=== PATIENT | female | born 1995 | race Caucasian/White ===

== ENCOUNTER 2021-11-23 14:51 | Inpatient (IN) | payer BC ==
[~2021-11-23] VITALS: Ht 162.6 cm; Wt 96.6 kg
[2021-11-23 14:52] VITALS: BP 101/77
[2021-11-23 15:17] LABS: HEMOGLOBIN 13.8 gm/dL (12.0-15.0); MCH 26.8 pg (26.0-34.0); MCHC 32.1 g/dL (28.0-37.0); MCV 83.3 fL (80.0-100.0); PLATELET COUNT 122 thou/uL (150-400); RBC 5.17 mil/uL (4.20-5.00); RDW 13.7 % (10.5-14.5); WBC 2.7 thou/uL (4.0-11.0)
[2021-11-23 15:51] LABS: ANION GAP 12 mmol/L (7-16); BUN 11 mg/dL (7-18); CALCIUM 8.5 mg/dL (8.5-10.1); CHLORIDE 103 mmol/L (98-107); CO2 25 mmol/L (21-32); CREATININE 0.8 mg/dL (0.6-1.0); GLUCOSE 114 mg/dL (74-106); POTASSIUM 3.9 mmol/L (3.5-5.1); SODIUM 140 mmol/L (136-145)
[2021-11-23 15:59] LABS: ABSOLUTE NEUTROPHILS 2.3 thou/uL (1.4-8.2)
[2021-11-23 16:01] LABS: ALBUMIN 3.4 g/dL (3.4-5.0); MAGNESIUM 1.8 mg/dL (1.8-2.4); SGOT 29 U/L (15-37); SGPT 27 U/L (14-59); TOTAL BILIRUBIN 0.3 mg/dL (0.2-1.0); TOTAL PROTEIN 7.2 g/dL (6.4-8.2)
[2021-11-23 20:00] VITALS: BP 112/80
[2021-11-24] VITALS: BP 110/72
[2021-11-24 04:00] VITALS: BP 112/67
[2021-11-24 06:48] LABS: HEMATOCRIT 38.6 % (37.0-47.0); HEMOGLOBIN 12.5 gm/dL (12.0-15.0); MCHC 32.4 g/dL (28.0-37.0); MCV 83.3 fL (80.0-100.0); RBC 4.63 mil/uL (4.20-5.00); RDW 13.8 % (10.5-14.5); WBC 3.3 thou/uL (4.0-11.0)
[2021-11-24 07:12] LABS: ALBUMIN 2.9 g/dL (3.4-5.0); ANION GAP 14 mmol/L (7-16); BUN 11 mg/dL (7-18); CALCIUM 7.5 mg/dL (8.5-10.1); CHLORIDE 103 mmol/L (98-107); CO2 21 mmol/L (21-32); CREATININE 0.7 mg/dL (0.6-1.0); DIRECT BILIRUBIN < 0.1 mg/dL (<0.1-0.2); GLUCOSE 83 mg/dL (74-106); MAGNESIUM 1.2 mg/dL (1.8-2.4); PHOSPHORUS 3.3 mg/dL (2.6-4.7); POTASSIUM 3.4 mmol/L (3.5-5.1); SGOT 26 U/L (15-37); SGPT 23 U/L (14-59); SODIUM 138 mmol/L (136-145); TOTAL BILIRUBIN 0.2 mg/dL (0.2-1.0); TOTAL PROTEIN 6.3 g/dL (6.4-8.2)
[2021-11-24 07:40] VITALS: BP 109/55
--- NOTE | 2021-11-24 08:21 | NUR ---
UNABLE TO PULL PATIENT MEDICATIONS AT THIS TIME. PHARMACY AWARE
[2021-11-24 11:32] VITALS: BP 111/59
--- NOTE | 2021-11-24 11:56 | NUR ---
PT TITRATED UP TO 6 LITERS NASAL CANNULA NOW AT THIS TIME. PT STARTED THE MORNING ON 2 LITERS
[2021-11-24 12:47] LABS: BE(vivo) 1.1 mmol/L (-2 to +3); HCO3 24.3 mmol/L (22.0-26.0); PCO2 34.6 mmHg (35.0-45.0); pH 7.465 (7.360-7.450); sO2 90.8 % (92.0-98.0)
[2021-11-24 12:48] LABS: PO2 55.5 mmHg (80.0-100.0)
--- NOTE | 2021-11-24 13:28 | NUR ---
CONTACT DR. HAY AND NIKITA ABOUT ABG AND ELECTROLYTES. INFORM PATIENT ON NEED FOR LOVENOX AND ACCU CHECK. PT AGREES TO ALLOW MEDICATION AND BLOOD GLUCOSE CHECKS. PLACE REGULAR DIET. WILL CONTINUE TO ASSESS.
[2021-11-24 20:00] VITALS: BP 106/65
[2021-11-24 23:44] VITALS: BP 100/70
[2021-11-25 03:59] VITALS: BP 115/81; BP 115/87
[2021-11-25 06:36] LABS: HEMATOCRIT 40.5 % (37.0-47.0); HEMOGLOBIN 13.1 gm/dL (12.0-15.0); MCH 27.1 pg (26.0-34.0); MCHC 32.3 g/dL (28.0-37.0); MCV 83.8 fL (80.0-100.0); RBC 4.84 mil/uL (4.20-5.00); RDW 14.2 % (10.5-14.5); WBC 2.7 thou/uL (4.0-11.0)
[2021-11-25 07:01] LABS: ALBUMIN 2.9 g/dL (3.4-5.0); ANION GAP 13 mmol/L (7-16); BUN 12 mg/dL (7-18); CALCIUM 8.3 mg/dL (8.5-10.1); CHLORIDE 105 mmol/L (98-107); CO2 24 mmol/L (21-32); CREATININE 0.5 mg/dL (0.6-1.0); DIRECT BILIRUBIN < 0.1 mg/dL (<0.1-0.2); GLUCOSE 77 mg/dL (74-106); MAGNESIUM 1.8 mg/dL (1.8-2.4); PHOSPHORUS 4.2 mg/dL (2.5-4.9); POTASSIUM 3.8 mmol/L (3.5-5.1); SGOT 27 U/L (15-37); SGPT 25 U/L (30-65); SODIUM 142 mmol/L (136-145); TOTAL BILIRUBIN 0.2 mg/dL (0.2-1.0); TOTAL PROTEIN 6.6 g/dL (6.4-8.2)
[2021-11-25 08:00] VITALS: BP 115/81
--- NOTE | 2021-11-25 08:14 | HC ---
[facility] [place] [address] CONSULTATION Name: KYLIE SELLERS Room #: 140-2 ADM IN M.R.#: [id number] Admission: 11/23/21 Attend Phys: Kyle Mays MD Discharge: Date of : 89 Report #: [id number] THIS REPORT FOR: cc: FAM - Family physician unknown FAM - Family physician unknown Sujit Clark MD ~ DATE OF SERVICE: 11/24/2021 INFECTIOUS DISEASE CONSULTATION ATTENDING PHYSICIAN: Dr. Mays. REASON FOR EVALUATION: COVID-19 infection, complicated by pneumonitis and respiratory failure. HISTORY OF PRESENT ILLNESS: Chart reviewed. The patient examined. This is a 26-year-old woman, diabetes mellitus type 2, asthma, depression, presents to the hospital with roughly 7-day history of progressive dyspnea, generalized myalgias, nonproductive cough. She was evaluated, confirmed to have COVID-19 infection. Initial D-dimer mildly elevated at 0.39. CBC showed leukopenia as well as thrombocytopenia. Procalcitonin less than 0.05. Follow up ABG on 6 liters showed pH 7.465, pCO2 of 34.6, pO2 of 55.5. Chest x-ray did show ____ infiltrates, on repeat showed slight interval improvement. She is generally lucid. She is currently maintained on 6 liters. She is empirically started on therapy with remdesivir. ALLERGIES: None known. CURRENT MEDICATIONS: Include ipratropium, albuterol inhaler, zinc, cholecalciferol, dexamethasone, insulin, guaifenesin, famotidine, enoxaparin, ascorbic acid and ivermectin. PAST MEDICAL HISTORY: As described above, asthma as well as polycystic ovary. SOCIAL HISTORY: Occasional ethanol. FAMILY HISTORY: Noncontributory. REVIEW OF SYSTEMS: Otherwise, unremarkable. Denies any significant GI related complaints. PHYSICAL EXAMINATION: GENERAL: She is alert, cooperative, moderate distress. She is generally lucid. VITAL SIGNS: Temperature 99.6, pulse 83, respirations 32, blood pressure is 111/59. SKIN: Warm, dry, no rashes. [facility] [address] [place] [address] CONSULTATION Name: KYLIE SELLERS Room #: 140-2 [facility] IN .R.#: [id number] Admission: 11/23/21 Attend Phys: Kyle Mays MD Discharge: Date of : 89 Report #: [id number] HEENT: Normocephalic. Extraocular muscles intact. Nasal cannula in place. NECK: Supple. LUNGS: Bilateral scattered coarse breath sounds, crackles at the right base. HEART: Regular. I do not appreciate a murmur. ABDOMEN: Mildly firm, nontender. EXTREMITIES: No cyanosis. GENITOURINARY AND RECTAL: Deferred. LABORATORY DATA: D-dimer most recently 0.34. ABGs: pH 7.465, pCO2 of 34.6, pO2 of 55.5 on 6 liters. CRP of 68.1. Electrolytes: Sodium 138, potassium 3.4, chloride 103, bicarbonate is 21, anion gap of 14, BUN and creatinine 11 and 0.7, glucose of 83, AST of 26, otherwise unremarkable LFTs. Albumin of 2.9, total protein 6.3. CBC: White count of 3.3, H and H 12.5 and 38.6, platelets of 130. ASSESSMENT AND PLAN: COVID-19 infection, complicated by pneumonitis, respiratory failure. We will continue a combination therapy with remdesivir, corticosteroids, add baricitinib. She remains quite tenuous and actually has worsened since she has been in the hospital. She has got a marginal pO2 in spite of increasing oxygen supplementation. We will add ceftriaxone as well. Monitor expectantly. Continue supportive care. <ELECTRONICALLY SIGNED> By: Sujit Clark MD 11/25/21 [id number] Sujit Clark MD /nt
[2021-11-25 12:00] VITALS: BP 115/81
[2021-11-25 16:00] VITALS: BP 115/81
[2021-11-25 20:00] VITALS: BP 120/76
[2021-11-26] VITALS: BP 122/60
--- NOTE | 2021-11-26 03:02 | NUR ---
ASSESSMENT: PT ANXIOUS ABOUT WANTING TO GO HOME. THIS IS PT'S 3RD NIGHT IN ED HOLDING. VSS, SR-SB PER MONITOR. DENIES PAIN. [place] WITH EXERTION TO THE BSC. PT PRONE HERSELF DURING THE NIGHT. CURRENTLY ON 4-5 LITERS NC. RIGHT AC IV INTACT. SLOW PROGRESS TOWARDS DC GOALS, WILL CONTINUE TO MONITOR.
[2021-11-26 06:21] LABS: HEMATOCRIT 40.9 % (37.0-47.0); HEMOGLOBIN 13.3 gm/dL (12.0-15.0); MCH 26.8 pg (26.0-34.0); MCHC 32.4 g/dL (28.0-37.0); MCV 82.9 fL (80.0-100.0); RBC 4.94 mil/uL (4.20-5.00); WBC 3.2 thou/uL (4.0-11.0)
[2021-11-26 07:13] LABS: ALBUMIN 3.1 g/dL (3.4-5.0); ANION GAP 14 mmol/L (7-16); BUN 16 mg/dL (7-18); CALCIUM 8.6 mg/dL (8.5-10.1); CHLORIDE 106 mmol/L (98-107); CO2 26 mmol/L (21-32); CREATININE 0.7 mg/dL (0.6-1.0); DIRECT BILIRUBIN < 0.1 mg/dL (<0.1-0.2); GLUCOSE 90 mg/dL (74-106); MAGNESIUM 2.1 mg/dL (1.8-2.4); PHOSPHORUS 4.2 mg/dL (2.5-4.9); POTASSIUM 3.8 mmol/L (3.5-5.1); SGOT 21 U/L (15-37); SGPT 25 U/L (30-65); SODIUM 146 mmol/L (136-145); TOTAL BILIRUBIN 0.3 mg/dL (0.2-1.0); TOTAL PROTEIN 6.6 g/dL (6.4-8.2)
[2021-11-26 09:26] VITALS: BP 107/62
[2021-11-26 15:07] VITALS: BP 107/62
[2021-11-26 16:00] VITALS: BP 107/62
[2021-11-26 20:00] VITALS: BP 107/62
[2021-11-27] VITALS (7 sets, daily range): BP systolic 94–112; BP diastolic 60–67
[2021-11-27 05:06] LABS: HEMATOCRIT 41.4 % (37.0-47.0); HEMOGLOBIN 13.3 gm/dL (12.0-15.0); MCHC 32.1 g/dL (28.0-37.0); MCV 83.9 fL (80.0-100.0); RBC 4.94 mil/uL (4.20-5.00); RDW 13.9 % (10.5-14.5); WBC 3.2 thou/uL (4.0-11.0)
[2021-11-27 05:26] LABS: ALBUMIN 3.2 g/dL (3.4-5.0); CALCIUM 8.6 mg/dL (8.5-10.1); CREATININE 0.7 mg/dL (0.6-1.0); MAGNESIUM 2.2 mg/dL (1.8-2.4); POTASSIUM 3.6 mmol/L (3.5-5.1); TOTAL BILIRUBIN 0.3 mg/dL (0.2-1.0); TOTAL PROTEIN 6.6 g/dL (6.4-8.2)
[2021-11-27] MEDS ORDERED: METFORMIN HCL500 M3 PO ×2 (10:04)
[2021-11-27] MEDS ORDERED: PROAIR HFA8.5 GM INH (10:05)
[2021-11-27] MEDS ORDERED: ADVAIR 250-501 EACH INH (10:06)
[2021-11-28] VITALS (8 sets, daily range): BP systolic 112–128; BP diastolic 67–81
--- NOTE | 2021-11-28 00:08 | NUR ---
PT ALERT AND ORIENTED X4. VSS. AFEBRILE. HR GOES DOWN TO 40'S-50S WHILE IN A DEEP SLEEP. HR 50-60S WHILE AWAKE. SATS WNL ON 3LNC. BS DIMINSHED AND UNLABORED PRESENTLY. NO C/O PAIN OR SOA. WILL CONTINUE TO MONITOR PT FOR CHANGES.
--- NOTE | 2021-11-28 01:19 | NUR ---
PTS HR DOWN TO 39-40S WHILE ASLEEP. 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 OTHER VSS PRESENTLY. SEE VS. HR 60S WHILE AWAKE. BP WNL
[2021-11-28 05:35] LABS: ABSOLUTE NEUTROPHILS 2.3 thou/uL (1.4-8.2); BASOPHILS 0.2 % (0.0-2.0); EOSINOPHILS 0.3 % (0.0-3.0); HEMATOCRIT 41.1 % (37.0-47.0); HEMOGLOBIN 13.2 gm/dL (12.0-15.0); LYMPHOCYTES 31.8 % (24.0-44.0); MCH 26.8 pg (26.0-34.0); MCHC 32.2 g/dL (28.0-37.0); MCV 83.4 fL (80.0-100.0); MONOCYTES 9.7 % (1.0-8.0); PLATELET COUNT 268 thou/uL (150-400); RBC 4.93 mil/uL (4.20-5.00); RDW 13.8 % (10.5-14.5); WBC 3.9 thou/uL (4.0-11.0)
[2021-11-28 05:51] LABS: CALCIUM 8.5 mg/dL (8.5-10.1); CREATININE 0.6 mg/dL (0.6-1.0); MAGNESIUM 2.1 mg/dL (1.8-2.4); POTASSIUM 3.6 mmol/L (3.5-5.1)
--- NOTE | 2021-11-28 05:56 | NUR ---
P ANXIOUS TO GO HOME TODAY. HR REMAINS IN 40S WHILE ASLEEP AND OCCASIONALLY IN THE 30S THIS AM. PT ASYMPTOMATIC . VSS. AWAKENS EASILY. BP WNL. NO DIZZINESS.
[2021-11-28] MEDS ORDERED: PEPCID20 MG PO (13:04)
[2021-11-28] MEDS ORDERED: VITAMIN C500 M1 PO (13:04)
[2021-11-28] MEDS ORDERED: ZINC SULFATE50 MG PO (13:04)
[2021-11-28] MEDS ORDERED: VITAMIN D325 MC2 PO (13:04)
[2021-11-28] MEDS ORDERED: ASPIRIN EC81 M1 PO (13:04)
[2021-11-28] MEDS ORDERED: PREDNISONE 10 M10 M1 PO (13:04)
[2021-11-28] MEDS ORDERED: MUCINEX600 MG PO (13:04)
--- NOTE | 2021-11-28 14:23 | NUR ---
INITIAL ASSESSMENT/DISCHARGE NOTE: Received consult. SW reviewed chart and spoke with nursing and attending physician. Pt was admitted from home due to COVID pneumonia. Pt placed in Enhanced Isolation. Pt has not received a COVID vaccination. Pt with hx asthma. Pt is medically stabel for discharge home today. Rest/exercise oximetry completed. Pt does not need home O2. SW spoke with pt via phone. Introduced role of SW. Pt is alert/orientated x 4. Pt reports she lives at home with her . Prior to admission, pt was independent with ADLs. No use of DME. Pt works as a certified pharmacy technician. Pt denies having any discharge needs. Pt's to provide transportation home. SW's contact info placed in pt's discharge summary, should her employer need documentation regarding pt's hospitalization. ANNETTA updated pt's nurse. No additional SW needs identified at this time. SW is available to assist should needs arise.
== END 2021-11-28 15:20 | disposition home or self-care (01) | DRG 871 ==
LOC: ER 14:51 → ADMC 19:43 → EROBS 11-25 08:29 → 3W 11-27 09:48
PROVIDERS: Nurse Practitioner; Nurse Practitioner Family; ADMIT Internal Medicine; ATTEND Internal Medicine
PROC: XW033E5 Introduction of Remdesivir Anti-infective into Peripheral Vein, Percutaneous Approach, New Technology Group 5 (ICD-10-PCS; principal; 2021-11-23)
DX: A41.9 Sepsis, unspecified organism (principal); U07.1 COVID-19; J12.82 Pneumonia due to coronavirus disease 2019; J80 Acute respiratory distress syndrome; J45.909 Unspecified asthma, uncomplicated; E28.2 Polycystic ovarian syndrome; F32.9 Major depressive disorder, single episode, unspecified; Z79.82 Long term (current) use of aspirin; Z79.899 Other long term (current) drug therapy
CPT/HCPCS: 10040; 10879